=== PATIENT | female | born 1985 | race American Indian/Alaskan Native ===

== ENCOUNTER 2017-06-16 23:21 | Emergency (ER) | payer BC ==
[2017-06-17] MEDS ORDERED: NORCO 5/325 PO ONE (03:33)
[2017-06-17] MEDS ORDERED: MARCAINE 0.5% INFILTRATI ONE (03:33)
--- NOTE | 2017-06-17 03:33 | Emergency Department Report ---
Abscess Boil HPI - HPI Chief Complaint: Extremity Problem,Nontraumatic Stated Complaint: TINGLING/NUMBNESS/SWOLLEN FINGER Time Seen by Provider: 06/17/17 02:27 Duration: 6 Days Location: Upper Extremity (right fourth digit to hand.) Severity: Severe (pain is 10 out of 10) History: Yes Pain (right fourth finger), No Fever, No Purulent Drainage, No Numbness, No Foreign Body, No Previous History, No Insect Bite (patient bites her finger) HPI: Patient he reports that her right fourth finger to her hand had pain red, swollen and painful and its progressive leg get in worst. This has been going on for 6 days. Patient says she bites her nails. Immunizations up-to-date. Denies any fever or chills. Denies any loss of sensation. Denies any restriction of movement to fingers on her right hand. Denies any swelling or redness or pain in her hand and extended above her elbows. Pain localized to right fourth finger. She says she took [id number] ibuprofen but it didn' t help. Home Medications: Previous Rx's Medication Instructions Recorded Last Taken Type Cephalexin [Keflex] 500 mg PO Q8HR 10 Days #30 cap 06/17/17 Unknown Rx Ibuprofen [Motrin] 600 mg PO Q8H PRN 5 Days #15 tablet 06/17/17 Unknown Rx Allergies/Adverse Reactions: Allergies Allergy/AdvReac Type Severity Reaction Status Date / Time No Known Allergies Allergy Unverified 07/11/14 12:41 ED Review of Systems ROS: Stated complaint: TINGLING/NUMBNESS/SWOLLEN FINGER Other details as noted in HPI Comment: All other systems reviewed and negative Constitutional: no symptoms reported Respiratory: no symptoms reported Cardiovascular: denies: chest pain, palpitations, edema, syncope Gastrointestinal: denies: abdominal pain, nausea, vomiting, diarrhea Musculoskeletal: joint swelling, arthralgia. denies: back pain, myalgia Skin: change in color, other (pain swelling to right fourth finger) Neurological: denies: headache, numbness, paresthesias, confusion, abnormal gait ED Past Medical Hx - Past Medical History Previous Medical History?: Yes Additional medical history: Herpes - Surgical History Past Surgical History?: No - Family History Family history: no significant - Social History Smoking Status: Never Smoker Substance Use Type: None - Medications Home Medications: Home Medications Medication Instructions Recorded Confirmed Last Taken Type Cephalexin [Keflex] 500 mg PO Q8HR 10 Days #30 cap 06/17/17 Unknown Rx Ibuprofen [Motrin] 600 mg PO Q8H PRN 5 Days #15 tablet 06/17/17 Unknown Rx ED Abscess Boil Physical Exam - Exam General: Vital signs noted. No distress. Alert and acting appropriately. This is a 31-year-old female well-nourished well-developed in no acute distress. Front/Back of Body, Lg (Color): 1 - Patient with redness, tenderness to palpate, swelling, positive induration with fluctuance to right distal phalanx of 14 around nailbed. Size: 1 cm Exam: Yes Tenderness (right fourth distal phalanx), Yes Fluctuance (right fourth distal phalanx or the nailbed), Yes Surrounding Cellulites/Erythema ( right fourth distal phalanx), Yes Normal Neurologic Exam, No Lymphangitis, No Crepitation, No Heart Murmur, No Normal Circulation Exam: Head: Normocephalic, atraumatic. Neck: Upper, no adenopathy, no C spine tenderness and full range of motion. Lungs: Clear Air to auscultate bilaterally , no rhonchi wheezes or rales. Cardiovascular:S1, S2. Regular rate rhythm negative murmur. Extremity: No clubbing, cyanosis or edema Except .right fourth digit distal phalanx with redness, swelling and tenderness to palpate around nail that. +2 pulses all extremities. No neurovascular compromise. +5/ 5 strength in all extremities. Skin: Noted indurated, fluctuant area to distal phalanx around nail bed and the tuft of finger. This is located to the right fourth distal phalanx. No obvious drainage but obvious cellulitis.. Nail bed intact and capillary refill is less than 3 seconds. Psych: Normal mood and behavior. I & D Note - I & D Note I & D Note: Procedure: Patient with paronychia to right fourth distal phalanx of right hand. Under sterile procedure, right hand cleanse with betadine and followed by normal saline. 0.5 mL of 0.5% Marcaine used for digital block. After block achieved, #11 blade used to make a small incision to the inner lateral distal phalanx of fourth finger. Copious amount of pus expressed from site. Area packed with iodoform. Cleansed with iodine and normal saline. Sterile dressing placed the site. Patient tolerated procedure well. She said her tetanus vaccine is up-to-date which is less than 5 years. I instructed patient that she can follow up with her primary care physician to have packing removed, if finger is better after 3 days she can remove the packing herself or she can return to the emergency room to have packing removed in 3 days. I also instructed her if finger appears to be worsening to return to the emergency room EDOUARD ED Course Vital Signs 06/16/17 23:31 Temperature 98.0 F Pulse Rate 77 Respiratory 18 Rate Blood Pressure 127/85 O2 Sat by Pulse 97 Oximetry - Reevaluation(s) Reevaluation #1: 06/17/17 05:35 Patient given [place]/325 mg by mouth and Keflex 70 mg by mouth and emergency room without adverse reaction. Please see procedure note for digital block. The I&D section for incision and drainage Critical care attestation.: If time is entered above; I have spent that time in minutes in the direct care of this critically ill patient, excluding procedure time. ED Medical Decision Making - Medical Decision Making ED course: Patient with paronychia to right fourth distal phalanx of right hand and surrounding cellulitis. Procedure for incision and drainage and digital block and with 0.5 mL of 0.5% Marcaine. Please see I&D section and procedure note for details. Patient revealed that her tetanus shot is up-to-date and less than 5 years. Patient received [place] 5/325 2 tablets emergency room and Keflex 500 mg 1 tablet. She had no adverse reaction and her pain is decreased. Patient is having no pain at present due to digital block. Seizure performed successfully a sterile dry dressing to side. Patient is a nail biter and I discussed with her that she should refrain from biting her nail as this will continue to cause infection around her nail. She voiced understanding and discharged home with her family member. Patient given prescription for Keflex and Motrin. I discussed with her that she needs to leave packing in for 3 days and to apply warm compresses to affected area 3-4 times a day. ED Disposition Clinical Impression: Acute paronychia of finger of right hand, Cellulitis of right ring finger, Pain of finger of right hand, Encounter for incision and drainage procedure Disposition: TO HOME OR SELFCARE Is pt being admited?: No Does the pt Need Aspirin: No Condition: Stable Instructions: Abscess Incision and Drainage (ED), Cellulitis (ED), Arthralgia ( ED), Acute Wound Care (ED) Additional Instructions: Take antibiotic as prescribed Follow-up with your primary care physician in 3 days and if he cannot get away primary care or if he don't have one you can return to the emergency room for reevaluation and removal of packing Keep affected area clean and dry. Followed discharge instruction on acute wound care . Please return to emergency room if you develop increasing redness, streaking, fever, difficulty moving in and the left forearm and increase in pain. Prescriptions: Cephalexin [Keflex] 500 mg PO Q8HR 10 Days #30 cap Ibuprofen [Motrin] 600 mg PO Q8H PRN 5 Days #15 tablet PRN Reason: Pain Referrals: PRIMARY CARE,MD [Primary Care Provider] - 3-5 Days Forms: Accompanied Note, Work/School Release Form(ED) - Nerve Block Consent Obtained: verbal consent Time Out Performed: Yes Local Anesthetic Used: Marcaine 0.5% Amount of anesthesia used: 0.5 (cc) Side: right Nerve Blocks: digital (right distal phalanx of fourth finger) Procedure Successful: Yes (iodoform packing in place) Complications: none Patient Tolerated Procedure: well, no complications, other (sterile dry dressing placed the site.)
[2017-06-17] MEDS ORDERED: KEFLEX PO ONE (03:34)
[2017-06-17 05:59] VITALS: BP 126/82
== END 2017-06-17 05:57 | disposition home or self-care (01) ==
LOC: ED 06-17 00:59
DX: L03.011 Cellulitis of right finger (principal)

== ENCOUNTER 2020-07-22 09:42 | Emergency (ER) | payer BC | END 2020-07-22 15:00 | disposition left against medical advice (07) | LOC: ED 09:42 | DX: Z00.8 Encounter for other general examination (principal); Z53.21 Procedure and treatment not carried out due to patient leaving prior to being seen by health care provider ==